=== PATIENT | male | born 1955 | race Caucasian/White ===

== ENCOUNTER 2018-03-03 06:59 | Outpatient (CLI) | payer OTHER ==
[~2018-03-03 06:59] MED LIST: ZOCOR40 MG PO
== END 2018-03-03 07:06 | disposition home or self-care (01) ==
LOC: LAB 06:59
DX: N20.0 Calculus of kidney (principal)

== ENCOUNTER → 2018-03-11 06:47 | Outpatient (CLI) | payer OTHER | END | disposition home or self-care (01) | LOC: LAB 06:47 | DX: N20.0 Calculus of kidney (principal) ==

== ENCOUNTER 2025-02-02 09:03 | Outpatient (CLI) | payer OTHER | END 2025-02-02 09:05 | disposition home or self-care (01) | LOC: RAD 09:03 | PROVIDERS: ATTEND Urology | DX: N20.0 Calculus of kidney (principal) ==